=== PATIENT | female | born 1950 | race Caucasian/White ===

== ENCOUNTER → 2020-03-03 | Outpatient (CLI) | payer BC, OTHER ==
[~2020-03-03] MED LIST: ACET325T14 PO; ALEN70TA6 PO; APIX5TAB PO; CINNAMON PO; COLACE PO; FURO-93 PO; LACT1CAP37 PO; MAGN100T6 PO; METO-95 PO; OMEP20TA62 PO; TRAM50TA2 PO; VITAMIN D PO
[2020-03-03 15:06] LABS: BASOPHILS # (AUTO) 0.07 x10^3/uL (0-0.1); BASOPHILS % (AUTO) 1 % (0-1); EOSINOPHILS % (AUTO) 2 % (1-7); LYMPHOCYTES # (AUTO) 1.75 x10^3/uL (1-3.4); LYMPHOCYTES % (AUTO) 26 % (22-44); MD NO; MEAN CORPUSCULAR HEMOGLOBIN 25.7 pg (27.0-34.8); MEAN CORPUSCULAR HGB CONC 31.8 g/dL (32.4-35.8); MEAN CORPUSCULAR VOLUME 80.7 fL (80-100); MEAN PLATELET VOLUME 9.9 fL (7.4-10.4); MONOCYTES # (AUTO) 0.47 x10^3/uL (0.2-0.8); MONOCYTES % (AUTO) 7 % (2-9); NEUTROPHILS # (AUTO) 4.45 x10^3/uL (1.8-6.8); NEUTROPHILS % (AUTO) 65 % (42-75); PLATELET COUNT 337 x10^3/uL (130-400); RED BLOOD COUNT 4.79 x10^6/uL (3.82-5.3); RED CELL DISTRIBUTION WIDTH 17.2 % (9.6-15.2)
[2020-03-03 15:17] LABS: ALANINE AMINOTRANSFERASE 17 U/L (12-78); ALBUMIN 3.4 g/dL (3.4-5.0); ANION GAP 7 mmol/L (5-15); CALCIUM 9.1 mg/dL (8.5-10.1); CHLORIDE 105 mmol/L (98-107); CREATININE 0.67 mg/dL (0.55-1.02)
[2020-03-03 15:19] LABS: ALKALINE PHOSPHATASE 112 U/L (45-117); BILIRUBIN,TOTAL 0.4 mg/dL (0.2-1.0); TOTAL PROTEIN 7.9 g/dL (6.4-8.2)
[2020-03-03 15:31] LABS: INTERNATIONAL NORMALIZED RATIO 0.97 (0.93-1.1); PROTHROMBIN TIME 10.3 Seconds (9.6-11.5)
== END | disposition home or self-care (01) ==
LOC: STAR 13:40
PROVIDERS: ATTEND Orthopaedic Surgery
DX: Z01.818 Encounter for other preprocedural examination (principal); M16.12 Unilateral primary osteoarthritis, left hip; Z79.899 Other long term (current) drug therapy
CPT/HCPCS: 36415; 80053; 83036; 85025; 85610; 85730; 87081; 93005

== ENCOUNTER 2020-03-09 06:53 | Observation (INO) | payer BC, OTHER ==
[~2020-03-09] VITALS: Ht 167.6 cm; Wt 113.9 kg
[2020-03-09] MEDS: NS + 20MEQ KCL 1,000 ML IV SCH ×2 (06:36→19:06)
[~2020-03-09 06:53] MED LIST changes: +EPINEPHRINE 1 MG/ML, 1ML ONE; +ROPIvacaine/PF 0.5%, 20 ML ONE; +ROPIvacaine/PF 0.5%, 30 ML ONE; +SODIUM CHLORIDE 0.9% 50 ML ONE; +TRANEXAMIC ACID 100 MG/ML, 10ML ONE; +VANCOMYCIN 1,000 MG ONE
[2020-03-09] MEDS ORDERED: ACETAMINOPHEN 650 MG/20.3 ML UDC PO PRN (07:00)
[2020-03-09] MEDS ORDERED: BISACODYL 10 MG SUPP PR PRN (07:00)
[2020-03-09] MEDS ORDERED: MAGNESIUM HYDROXIDE 8%, 30ML UDC PO PRN (07:00)
[2020-03-09] MEDS ORDERED: ONDANSETRON 4 MG TABLET PO PRN (07:00)
[2020-03-09] MEDS ORDERED: ZOLPIDEM 5MG TABLET PO PRN (07:00)
[2020-03-09] MEDS ORDERED: SENNA/DOCUSATE TABLET PO PRN (07:00)
[2020-03-09] MEDS ORDERED: HYDROcodone/APAP 5/325 TABLET PO PRN (07:00)
[2020-03-09] MEDS ORDERED: ONDANSETRON 2MG/ML, 2ML IV PRN (07:00)
[2020-03-09] MEDS ORDERED: DIPHENHYDRAMINE 25 MG CAPSULE PO PRN (07:00)
[2020-03-09] MEDS ORDERED: FUROSEMIDE 20 MG TABLET PO SCH (07:00)
[2020-03-09] MEDS ORDERED: LACTATED RINGERS 1,000 ML IV SCH (07:14)
[2020-03-09] MEDS ORDERED: GABAPENTIN 300 MG CAPSULE PO ONE (07:30)
[2020-03-09] MEDS ORDERED: CHLORHEXIDINE 15 ML UDC MM ONE (07:30)
[2020-03-09] MEDS ORDERED: ACETAMINOPHEN 500 MG TABLET PO ONE (07:30)
[2020-03-09] MEDS ORDERED: LIDOCAINE-MPF 1%, 2ML INFIL ONE (07:30)
[2020-03-09] MEDS ORDERED: FENTANYL PF 250 MCG/5ML ONE (08:17)
[2020-03-09] MEDS ORDERED: MIDAZOLAM 1 MG/ML, 2ML ONE (08:17)
[2020-03-09] MEDS ORDERED: HYDROmorphone 1 MG/ML, 1ML INJ IVPush PRN (09:00)
[2020-03-09] MEDS ORDERED: MEPERIDINE/PF 25MG/0.5ML IVPush PRN (09:00)
[2020-03-09] MEDS ORDERED: LABETALOL 5MG/ML, 20ML IV PRN (09:00)
[2020-03-09] MEDS ORDERED: ALBUTEROL SULFATE 2.5 MG/3 ML NPPB PRN (09:00)
[2020-03-09] MEDS ORDERED: PROMETHAZINE 25 MG/ML, 1ML IV PRN (09:00)
[2020-03-09] MEDS ORDERED: hydrALAzine 20 MG/ML, 1ML IV PRN (09:00)
[2020-03-09] MEDS ORDERED: OXYcodone 5 MG/5 ML ORAL.SOL UDC PO PRN (09:00)
[2020-03-09] MEDS ORDERED: DIAZEPAM 5 MG/ML, 2ML IVPush PRN (09:00)
[2020-03-09] MEDS ORDERED: FENTANYL PF 100 MCG/2ML ONE (10:09)
[2020-03-09] MEDS ORDERED: HYDROmorphone 1 MG/ML, 1ML INJ ONE (10:10)
[2020-03-09] MEDS: FENTANYL PF 100 MCG/2ML IV PRN ×3 (10:13→10:48)
[2020-03-09] MEDS ORDERED: TRANEXAMIC ACID 1,000 MG in SODIUM CHLORIDE 0.9% 100 ML IV ONE (10:30)
[2020-03-09] MEDS ORDERED: NEOSTIGMINE 1 MG/ML, 10ML ONE (10:34)
[2020-03-09] MEDS ORDERED: ROCURONIUM 10MG/ML,5ML ONE (10:34)
[2020-03-09] MEDS ORDERED: DEXAMETHASONE 4 MG/ML, 1ML ONE (10:34)
[2020-03-09] MEDS ORDERED: ONDANSETRON 2MG/ML, 2ML ONE (10:34)
[2020-03-09] MEDS ORDERED: GLYCOPYRROLATE 0.2MG/1ML, 5ML ONE (10:34)
[2020-03-09] MEDS ORDERED: SUCCINYLCHOLINE 20 MG/ML, 10ML ONE (10:34)
[2020-03-09] MEDS ORDERED: CEFAZOLIN 1,000 MG ONE (10:34)
[2020-03-09] MEDS ORDERED: PROPOFOL 10 MG/ML, 20ML ONE (10:34)
[2020-03-09] MEDS ORDERED: ASPIRIN 81 MG TABLET EC PO SCH (18:00)
[2020-03-09] MEDS: METOPROLOL SUCCINATE 100 MG TAB.ER.24H PO SCH (18:31)
[2020-03-09] MEDS: DOCUSATE 100 MG CAPSULE PO SCH ×2 (18:31→20:59)
[2020-03-09] MEDS: CEFAZOLIN PMX 2GM/50ML 50 ML IVPB SCH (19:20)
[2020-03-09 19:35] VITALS: BP 92/58
[2020-03-09 23:47] VITALS: BP 96/65
[2020-03-10] MEDS: OXYcodone IR 5MG TABLET PO PRN ×2 (01:58→02:39)
[2020-03-10] MEDS: CEFAZOLIN PMX 2GM/50ML 50 ML IVPB SCH (03:29)
[2020-03-10 04:03] VITALS: BP 103/69
[2020-03-10] MEDS ORDERED: OMEPRAZOLE 20 MG CAPSULE.DR PO SCH (06:00)
[2020-03-10] MEDS ORDERED: DEXAMETHASONE 4 MG/ML, 1ML IVPush SCH (06:00)
[2020-03-10 06:54] VITALS: BP 104/66
[2020-03-10] MEDS: NS + 20MEQ KCL 1,000 ML IV SCH (07:36)
[2020-03-10] MEDS: METOPROLOL SUCCINATE 100 MG TAB.ER.24H PO SCH (08:43)
[2020-03-10] MEDS: DOCUSATE 100 MG CAPSULE PO SCH (08:43)
[2020-03-10] MEDS ORDERED: APIXABAN 2.5 MG TABLET PO SCH (09:00)
[2020-03-10] MEDS ORDERED: OXYC5CAP2 PO (09:48)
[2020-03-10 12:00] VITALS: BP 104/66
== END 2020-03-10 13:01 | disposition home or self-care (01) ==
LOC: OUT 06:53 → 4NE 18:14 → OUT 19:59 → DCLOUNGE 03-10 12:51
PROVIDERS: ADMIT Orthopaedic Surgery; ATTEND Orthopaedic Surgery
DX: M16.12 Unilateral primary osteoarthritis, left hip (principal); I48.91 Unspecified atrial fibrillation; E66.9 Obesity, unspecified; K21.9 Gastro-esophageal reflux disease without esophagitis; D64.9 Anemia, unspecified; Z79.01 Long term (current) use of anticoagulants
CPT/HCPCS: 27130; 36415; 72170; 73502; 76000; 85014; 85018; 88300; 96365; 96366; 96375; 97110; 97161; 97165; C1713; C1776; G0378; J0171; J0330; J0690; J1100; J1170; J2250; J2405; J2704; J2710; J2795; J3010; J3370; J7120

== ENCOUNTER → 2020-07-19 | Outpatient (CLI) | payer OTHER ==
[~2020-07-19] MED LIST changes: +CRANBERRY PO; -EPINEPHRINE 1 MG/ML, 1ML ONE; +OXYC5CAP2 PO; -ROPIvacaine/PF 0.5%, 20 ML ONE; -ROPIvacaine/PF 0.5%, 30 ML ONE; -SODIUM CHLORIDE 0.9% 50 ML ONE; -TRANEXAMIC ACID 100 MG/ML, 10ML ONE; -VANCOMYCIN 1,000 MG ONE
[2020-07-19 15:29] LABS: BASOPHILS % (AUTO) 1 % (0-1); EOSINOPHILS % (AUTO) 3 % (1-7); LYMPHOCYTES % (AUTO) 31 % (22-44); MONOCYTES % (AUTO) 11 % (2-9); NEUTROPHILS % (AUTO) 53 % (42-75); PLATELET COUNT 464 x10^3/uL (130-400); RED BLOOD COUNT 5.09 x10^6/uL (3.82-5.3); RED CELL DISTRIBUTION WIDTH 21.4 % (9.6-15.2)
[2020-07-19 15:31] LABS: MEAN CORPUSCULAR HGB CONC 29.5 g/dL (32.4-35.8)
[2020-07-19 15:37] LABS: ANION GAP 5 mmol/L (5-15); CALCIUM 8.7 mg/dL (8.5-10.1); CHLORIDE 105 mmol/L (98-107)
[2020-07-19 15:58] LABS: INTERNATIONAL NORMALIZED RATIO 0.99 (0.93-1.1); PROTHROMBIN TIME 10.2 Seconds (9.6-11.5)
[2020-07-19 16:14] LABS: MD MORPH REVIEW ONLY
[2020-07-19 16:15] LABS: ANISOCYTOSIS 1+; HYPOCHROMIA 1+; MICROCYTOSIS 2+; OVALOCYTES 1+; POLYCHROMASIA 1+; SPHEROCYTES 1+
[2020-07-19 16:16] LABS: <PLATELET ESTIMATE> INCREASED; LARGE PLATELETS 1+; TARGET CELLS 1+
== END | disposition home or self-care (01) ==
LOC: STAR 14:19
PROVIDERS: ATTEND Orthopaedic Surgery
DX: Z01.818 Encounter for other preprocedural examination (principal); M17.11 Unilateral primary osteoarthritis, right knee; I25.2 Old myocardial infarction
CPT/HCPCS: 36415; 80048; 83036; 85025; 85610; 85730; 87081; 93005

== ENCOUNTER → 2020-07-22 | Outpatient (CLI) | payer OTHER | END | disposition home or self-care (01) | LOC: STAR 14:04 | PROVIDERS: ATTEND Anesthesiology | DX: Z01.812 Encounter for preprocedural laboratory examination (principal); Z20.828 Contact with and (suspected) exposure to other viral communicable diseases | CPT/HCPCS: 36415; 87635 ==

== ENCOUNTER → 2020-10-06 | Outpatient (CLI) | payer OTHER ==
[~2020-10-06] MED LIST changes: -ALEN70TA6 PO; +ALEN70TA66 PO; +ASCO500T8 PO; +CALC1CAP8 PO; +FERR324T5 PO
[2020-10-06 13:14] LABS: BASOPHILS % (AUTO) 1 % (0-1); EOSINOPHILS % (AUTO) 2 % (1-7); LYMPHOCYTES % (AUTO) 35 % (22-44); MEAN CORPUSCULAR HGB CONC 32.7 g/dL (32.4-35.8); MEAN PLATELET VOLUME 9.2 fL (7.4-10.4); MONOCYTES % (AUTO) 9 % (2-9); NEUTROPHILS % (AUTO) 53 % (42-75); PLATELET COUNT 252 x10^3/uL (130-400); RED BLOOD COUNT 5.49 x10^6/uL (3.82-5.3); RED CELL DISTRIBUTION WIDTH 28.6 % (9.6-15.2)
[2020-10-06 13:23] LABS: INTERNATIONAL NORMALIZED RATIO 0.96 (0.93-1.1); PROTHROMBIN TIME 10.2 Seconds (9.6-11.5)
[2020-10-06 13:25] LABS: CALCIUM 8.8 mg/dL (8.5-10.1); CREATININE 0.65 mg/dL (0.55-1.02)
[2020-10-06 13:34] LABS: ANION GAP 6 mmol/L (5-15); CHLORIDE 106 mmol/L (98-107)
[2020-10-06 13:41] LABS: MD SCAN
== END | disposition home or self-care (01) ==
LOC: STAR 11:53
PROVIDERS: ATTEND Orthopaedic Surgery
DX: Z01.810 Encounter for preprocedural cardiovascular examination (principal); Z01.818 Encounter for other preprocedural examination; M17.11 Unilateral primary osteoarthritis, right knee; M25.561 Pain in right knee; Z79.01 Long term (current) use of anticoagulants; Z20.828 Contact with and (suspected) exposure to other viral communicable diseases
CPT/HCPCS: 80048; 83036; 85025; 85610; 85730; 87081; 87635; 93005

== ENCOUNTER 2020-10-12 11:37 | Day surgery (SDC) | payer OTHER ==
[~2020-10-12] VITALS: Ht 167.6 cm; Wt 110.3 kg
[~2020-10-12 11:37] MED LIST changes: +ACETAMINOPHEN 650 MG/20.3 ML UDC PO PRN; +BISACODYL 10 MG SUPP PR PRN; +CEFAZOLIN PMX 2GM/50ML 50 ML IVPB SCH; +DIPHENHYDRAMINE 50 MG CAPSULE PO PRN; +DOCUSATE 100 MG CAPSULE PO SCH; +EPINEPHRINE 1 MG/ML, 1ML ONE; +HYDROcodone/APAP 5/325 TABLET PO PRN; +HYDROmorphone 1 MG/ML, 1ML INJ IV PRN; +KETOROLAC 60 MG/2 ML ONE; +MAGNESIUM HYDROXIDE 8%, 30ML UDC PO PRN; +METOPROLOL SUCCINATE 100 MG TAB.ER.24H PO SCH; +NS + 20MEQ KCL 1,000 ML IV SCH; +ONDANSETRON 2MG/ML, 2ML IV PRN; +ONDANSETRON 4 MG TABLET PO PRN; +OXYcodone IR 5MG TABLET PO PRN; +ROPIvacaine/PF 0.5%, 20 ML ONE; +ROPIvacaine/PF 0.5%, 30 ML ONE; +SENNA/DOCUSATE TABLET PO PRN; +SODIUM CHLORIDE 0.9% 50 ML ONE; +TRANEXAMIC ACID 100 MG/ML, 10ML ONE; +VANCOMYCIN 1,000 MG ONE; +ZOLPIDEM 5MG TABLET PO PRN
[2020-10-12 12:18] VITALS: BP 133/90
[2020-10-12] MEDS ORDERED: ACETAMINOPHEN 500 MG TABLET ONE (12:29)
[2020-10-12] MEDS ORDERED: LACTATED RINGERS 1,000 ML IV SCH (12:30)
[2020-10-12] MEDS ORDERED: CHLORHEXIDINE 15 ML UDC ONE (12:30)
[2020-10-12] MEDS ORDERED: CHLORHEXIDINE 15 ML UDC MM ONE (12:30)
[2020-10-12] MEDS ORDERED: GABAPENTIN 300 MG CAPSULE ONE (12:30)
[2020-10-12] MEDS ORDERED: ACETAMINOPHEN 500 MG TABLET PO ONE (12:30)
[2020-10-12] MEDS ORDERED: GABAPENTIN 300 MG CAPSULE PO ONE (12:30)
[2020-10-12] MEDS ORDERED: FENTANYL PF 100 MCG/2ML ONE ×3 (13:19)
[2020-10-12] MEDS ORDERED: MIDAZOLAM 1 MG/ML, 2ML ONE (13:19)
[2020-10-12] MEDS ORDERED: GLYCOPYRROLATE 0.2MG/1ML, 5ML ONE (13:20)
[2020-10-12] MEDS ORDERED: CEFAZOLIN 1,000 MG ONE (13:20)
[2020-10-12] MEDS ORDERED: ROCURONIUM 10MG/ML,5ML ONE (13:20)
[2020-10-12] MEDS ORDERED: ONDANSETRON 2MG/ML, 2ML ONE (13:20)
[2020-10-12] MEDS ORDERED: NEOSTIGMINE 1 MG/ML, 10ML ONE (13:20)
[2020-10-12] MEDS ORDERED: PROPOFOL 10 MG/ML, 20ML ONE (13:20)
[2020-10-12] MEDS ORDERED: BUPIVACAINE/PF 0.25% ONE (13:20)
[2020-10-12] MEDS ORDERED: PHENYLEPHRINE 10 MG/ML ONE (15:20)
[2020-10-12] MEDS ORDERED: DEXAMETHASONE 4 MG/ML, 1ML ONE (15:20)
[2020-10-12] MEDS ORDERED: ACETAMINOPHEN 325 MG TABLET PO PRN (15:30)
[2020-10-12] MEDS ORDERED: HALOPERIDOL 5 MG/ML IV PRN (15:30)
[2020-10-12] MEDS ORDERED: MEPERIDINE/PF 25MG/0.5ML IVPush PRN (15:30)
[2020-10-12] MEDS ORDERED: HYDROmorphone 1 MG/ML, 1ML INJ IVPush PRN (15:30)
[2020-10-12] MEDS ORDERED: PROMETHAZINE 25 MG/ML, 1ML IVPush PRN (15:30)
[2020-10-12] MEDS ORDERED: morphine SULFATE 10 MG/ML, 1ML IVPush PRN (15:30)
[2020-10-12] MEDS ORDERED: OXYcodone 5 MG/5 ML ORAL.SOL UDC PO PRN (15:30)
[2020-10-12] MEDS ORDERED: FENTANYL PF 100 MCG/2ML IV PRN (15:30)
[2020-10-12] MEDS ORDERED: hydrALAzine 20 MG/ML, 1ML IV PRN (15:30)
[2020-10-12] MEDS ORDERED: LABETALOL 5MG/ML, 20ML IV PRN (15:30)
[2020-10-12] MEDS ORDERED: TRANEXAMIC ACID 100 MG/ML, 10ML ONE ×2 (15:46)
[2020-10-12] MEDS ORDERED: OXYcodone 5 MG/5 ML ORAL.SOL UDC ONE (16:57)
[2020-10-12] MEDS ORDERED: ASPIRIN 81 MG TABLET EC PO SCH (18:00)
[2020-10-13] MEDS ORDERED: ASCO-96 PO (00:13)
[2020-10-13] MEDS ORDERED: OMEG-14 PO (00:14)
[2020-10-13] MEDS ORDERED: DEXAMETHASONE 4 MG/ML, 1ML IVPush SCH (06:00)
== END 2020-10-12 19:55 | disposition home or self-care (01) ==
LOC: OUT 11:37
PROVIDERS: ATTEND Orthopaedic Surgery
DX: M17.11 Unilateral primary osteoarthritis, right knee (principal); M21.161 Varus deformity, not elsewhere classified, right knee; M25.761 Osteophyte, right knee; G89.18 Other acute postprocedural pain; K21.9 Gastro-esophageal reflux disease without esophagitis; I48.91 Unspecified atrial fibrillation; Z79.01 Long term (current) use of anticoagulants; Z79.899 Other long term (current) drug therapy; Z96.642 Presence of left artificial hip joint; Z82.3 Family history of stroke; Z82.49 Family history of ischemic heart disease and other diseases of the circulatory system
CPT/HCPCS: 27447; 64447; 97110; 97162; 97165; C1713; C1776; J0171; J0690; J1100; J1885; J2250; J2370; J2405; J2704; J2710; J2795; J3010; J3370; J7120